=== PATIENT | female | born 1985 | race Caucasian/White ===

== ENCOUNTER 2021-11-10 16:58 | Emergency (ER) | payer MEDICAID ==
[~2021-11-10] VITALS: Ht 162.6 cm; Wt 65.1 kg
--- NOTE | 2021-11-11 01:19 | NUR ---
PT SLEEPING IN BED NEXT TO DAUGHTER. AWAKENS EASILY WHEN I WALK IN THE ROOM. SHE REQUESTED AN EXTRA BLANKET. NOTES A MILD HEADACHE BUT NO OTHER COMPLAINTS AT PRESENT.
[2021-11-11] MEDS ORDERED: METH-797 PO (02:10)
[2021-11-11 02:27] VITALS: BP 148/98
== END 2021-11-11 02:29 | disposition home or self-care (01) ==
LOC: ER 17:00
DX: S16.1XXA Strain of muscle, fascia and tendon at neck level, initial encounter (principal); S29.019A Strain of muscle and tendon of unspecified wall of thorax, initial encounter; S39.012A Strain of muscle, fascia and tendon of lower back, initial encounter; M62.830 Muscle spasm of back; R51.9 Headache, unspecified; Z79.899 Other long term (current) drug therapy; V87.7XXA Person injured in collision between other specified motor vehicles (traffic), initial encounter; Y93.89 Activity, other specified; Y92.89 Other specified places as the place of occurrence of the external cause; Y99.8 Other external cause status
CPT/HCPCS: 99283

== ENCOUNTER 2023-12-10 17:32 | Emergency (ER) | payer MEDICAID ==
[~2023-12-10] VITALS: Ht 162.6 cm; Wt 75.0 kg
[~2023-12-10 17:32] MED LIST: METH-797 PO
[2023-12-10 17:37] VITALS: BP 134/87; PULSE 87; RESP 18; TEMP 98.3; O2SAT 100
[2023-12-10] MEDS: LIDOcaine Viscous 15ml cup MM PRN (19:11)
[2023-12-10] MEDS: mag hydrox/Alum hydrox/simeth 30ml oral suspension PO ONE (19:11)
== END 2023-12-10 19:23 | disposition home or self-care (01) ==
LOC: ER 17:33
DX: K29.00 Acute gastritis without bleeding (principal)
CPT/HCPCS: 99281